=== PATIENT | female | born 1985 | race Caucasian/White ===

== ENCOUNTER 2024-12-18 11:48 | Emergency (ER) | payer SELFPAY ==
[~2024-12-18] VITALS: Ht 162.6 cm; Wt 63.8 kg
[2024-12-18] MEDS ORDERED: HYDROXYZINE HCL25 MG PO (13:46)
[2024-12-18] MEDS ORDERED: CEPHALEXIN500 MG PO (13:46)
[2024-12-18] MEDS ORDERED: PREDNISONE20 MG PO (13:46)
[2024-12-18] MEDS ORDERED: HYDROCODON-ACE1 EA10 PO (13:46)
[2024-12-18 14:11] VITALS: BP 156/94
== END 2024-12-18 14:11 | disposition home or self-care (01) ==
LOC: ED 11:48
DX: L23.7 Allergic contact dermatitis due to plants, except food (principal); Z88.0 Allergy status to penicillin
CPT/HCPCS: 99282